=== PATIENT | female | born 1935 | race Caucasian/White ===

== ENCOUNTER → 2016-05-18 | Outpatient (CLI) | payer MEDICARE | END | disposition home or self-care (01) | LOC: PCVCCLINIC 13:08 | PROVIDERS: ATTEND Internal Medicine Cardiovascular Disease | DX: I05.9 Rheumatic mitral valve disease, unspecified (principal); I10 Essential (primary) hypertension; R06.00 Dyspnea, unspecified; E78.00 Pure hypercholesterolemia, unspecified | CPT/HCPCS: 93005; G0463 ==

== ENCOUNTER → 2016-06-01 | Outpatient (CLI) | payer MEDICARE ==
[~2016-06-01] MED LIST: REGADENOSON 0.4 MG/5 ML DISP.SYRIN. IV ONE
== END | disposition home or self-care (01) ==
LOC: PCVCIMAG 08:39
PROVIDERS: ATTEND Internal Medicine Cardiovascular Disease
DX: I35.0 Nonrheumatic aortic (valve) stenosis (principal); I05.9 Rheumatic mitral valve disease, unspecified; I10 Essential (primary) hypertension; R06.00 Dyspnea, unspecified; E78.00 Pure hypercholesterolemia, unspecified
CPT/HCPCS: 78452; 93017; 93306; A9500; G0463; J2785

== ENCOUNTER → 2016-09-29 | Outpatient (CLI) | payer MEDICARE ==
--- NOTE | 2016-09-29 14:30 | PCVCIMAG ---
EXAM: 1. MESENTERIC ARTERIAL DUPLEX 2. AORTOILIAC DUPLEX INDICATION: Mesenteric Atherosclerosis. Peripheral arterial disease. FINDINGS: CELIAC AXIS: No flow limiting stenosis. No branch vessel stenosis. SUPERIOR MESENTERIC ARTERY: No flow limiting stenosis. No branch vessel stenosis. INFERIOR MESENTERIC ARTERY: No flow limiting stenosis. No branch vessel stenosis. Mesenteric veins are patent where seen. AORTA: Suprarenal aorta measures maximum diameter of 2.1 cm. There is not a fusiform infrarenal aortic aneurysm. The infrarenal aorta measures maximum diameter of 1.7 cm. No aortic stenosis. RIGHT COMMON ILIAC ARTERY: Maximum diameter is 0.9 cm. No significant stenosis. RIGHT EXTERNAL ILIAC ARTERY: No significant stenosis. LEFT COMMON ILIAC ARTERY: Maximum diameter is 1.0 cm. No significant stenosis. LEFT EXTERNAL ILIAC ARTERY: No significant stenosis. IMPRESSION: No flow limiting mesenteric arterial stenosis. No abdominal aortic aneurysm. No aortoiliac stenosis seen. LOC:[id number]
== END | disposition home or self-care (01) ==
LOC: PCVCIMAG 10:14
PROVIDERS: ATTEND Nuclear Medicine Nuclear Cardiology
DX: K55.1 Chronic vascular disorders of intestine (principal); I73.9 Peripheral vascular disease, unspecified
CPT/HCPCS: 93975; 93978

== ENCOUNTER → 2018-02-23 | Outpatient (CLI) | payer MEDICARE ==
--- NOTE | 2018-02-23 13:36 | PCVCIMAG ---
EXAM: BILATERAL CAROTID DUPLEX INDICATION: Carotid Occlusive Disease. FINDINGS: Doppler Measurements (centimeters per second): RIGHT: Peak CCA-69, Peak ECA-130, Diastolic ICA-16, Peak ICA-82, ICA/CCA Ratio-1.2. LEFT: Peak CCA-95, Peak ECA-96, Diastolic ICA-22, Peak ICA-111, ICA/CCA Ratio-1.2. RIGHT CAROTID: The carotid bulb has moderate plaque. The proximal internal carotid artery shows <40% stenosis. The common carotid artery shows no significant stenosis. The external carotid artery shows 40% stenosis. LEFT CAROTID: The carotid bulb has moderate plaque. The proximal internal carotid artery shows <40% stenosis. The common carotid artery shows no significant stenosis. The external carotid artery shows no significant stenosis. Antegrade flow in both vertebral arteries. IMPRESSION: <40% stenosis of the right internal carotid artery with moderate plaque. <40% stenosis of the left internal carotid artery with moderate plaque. LOC:[place] [id number]
== END | disposition home or self-care (01) ==
LOC: PCVCIMAG 12:08
PROVIDERS: ATTEND Internal Medicine
DX: I65.23 Occlusion and stenosis of bilateral carotid arteries (principal); R09.89 Other specified symptoms and signs involving the circulatory and respiratory systems
CPT/HCPCS: 93880

== ENCOUNTER → 2018-10-24 | Outpatient (CLI) | payer MEDICARE | END | disposition home or self-care (01) | LOC: PCVCCLINIC 13:40 | PROVIDERS: ATTEND Internal Medicine Cardiovascular Disease | DX: R07.9 Chest pain, unspecified (principal); R55 Syncope and collapse; I10 Essential (primary) hypertension; E78.00 Pure hypercholesterolemia, unspecified | CPT/HCPCS: 93005; G0463 ==

== ENCOUNTER → 2018-11-21 | Outpatient (CLI) | payer MEDICARE ==
--- NOTE | 2018-11-21 10:19 | PCVCIMAG ---
APPROVED REPORT Study performed: 11/21/2018 08:54:58 EXAM: Comprehensive 2D, Doppler, and color-flow Echocardiogram Patient Location: Echo lab Room #: 3Status: routine BSA: 1.52 HR: 64 bpmBP: 140/92 mmHg Rhythm: NSR Other Information Study Quality: Good Risk Factors: Cardiac Risk Factors: HTN, Hyperlipidemia Indications Aortic Valve Disease Mitral Valve Disease Mitral Valve Prolapse Chest Pain Hypertension/HDD 2D Dimensions IVSd: 8.78 (7-11mm)LVOT Diam: 19.13 (18-24mm) LVDd: 35.45 mm PWd: 10.99 (7-11mm)Ascending Ao: 27.38 (22-36mm) LVDs: 25.48 (25-40mm) Left Atrium: 26.52 (27-40mm) Aortic Root: 19.87 mm LV Single Plane 4CH: 72.82 % LV Single Plane 2CH: 62.45 % Biplane EF: 68.0 % Volumes Left Atrial Volume (Systole) Single Plane 4CH: 43.36 mLSingle Plane 2CH: 45.90 mL Biplane LA Volume: 48.00 mLLA ESV Index: 31.00 mL/m2 Aortic Valve AoV Peak Pro.: 2.16 m/s AO Peak Gr.: 17.57 mmHgLVOT Max P.01 mmHg AO Mean Gr.: 10.80 mmHgLVOT Mean P.55 mmHg AO V2 Mean: 1.57 m/sLVOT Max V: 0.83 m/s AO V2 VTI: 51.12 cmLVOT Mean V: 0.60 m/s MAEVE (VTI): 0.97 [id number] V1 VTI: 17.30 cm MAEVE Vmax: 1.11 cm2 AI Vmax: 3.20 m/sSV (LVOT): 49.69 mL AI [place]: 1.87 m/s2 AI PHT: 497.03 ms Mitral Valve MV Peak Gr.: 10.65 mmHg MV Mean Gr.: 5.54 mmHgE/A Ratio: 1.8 MV Decel. Time: 225.89 ms MV E Max Pro.: 1.48 m/s MV A Pro.: 0.83 m/s MV Max Pro.: 1.63 m/s MV Mean Pro.: 1.15 m/s MV VTI: 290.72 mm MVA VTI: 170.93 mm2 MV PHT: 40.45 ms MVA (PHT): 5.44 cm2 TDI E/Lateral E': 29.60E/Medial E': 29.60 Medial E' Pro.: 0.05 m/s Lateral E' Pro.: 0.05 m/s Pulmonary Valve PV Peak Pro.: 0.87 m/sPV Peak Gr.: 3.02 mmHg Pulmonary Vein P Vein S: 0.49 m/sP Vein A: 0.33 m/s P Vein D: 0.49 m/sP Vein A Dur.: 79.6 msec P Vein S/D Ratio: 1.00 Tricuspid Valve TR Peak Pro.: 2.83 m/s TR Peak Gr.: 32.02 mmHg TV Vmax: 0.64 m/sPA Pressure: 39.00 mmHg Left Ventricle The left ventricle is normal size. There is normal LV segmental wall motion. Borderline concentric left ventricular hypertrophy. Left ventricular systolic function is normal. The left ventricular ejection fraction is within the normal range. LVEF is 65-70%. Moderate diastolic dysfunction is present (pseudonormal filling). Right Ventricle The right ventricle is normal size. The right ventricular systolic function is normal. Atria The left atrium size is normal. The right atrium size is normal. Aortic Valve Aortic valve is trileaflet. Aortic valve leaflets are sclerotic with decreased opening. Mild to moderate aortic regurgitation. Moderate aortic stenosis. Highest mean aortic valve gradient is 10.8_mmHg. Peak aortic valve gradient is 18.7_mmHg. Calculated MAEVE by the continuity equation is 1.1 cm2. Mitral Valve Severe mitral annular calcification. The mitral valve is calcified and displays decreased opening. Moderate to severe mitral regurgitation No significant mitral valve stenosis. Tricuspid Valve The tricuspid valve is normal in structure. Mild to moderate tricuspid regurgitation with a PA pressure of 39 mmHg. Borderline pulmonary hypertension. Pulmonic Valve The pulmonary valve is normal in structure. There is no pulmonic valvular regurgitation. Great Vessels The aortic root is normal in size. The ascending aorta is normal in size. Aortic arch is normal in caliber. IVC is normal in size and collapses >50% with inspiration. Pericardium There is no pericardial effusion. There is no pleural effusion. <Conclusion> The left ventricle is normal size. Left ventricular systolic function is normal. Moderate diastolic dysfunction is present (pseudonormal filling). The right ventricle is normal size. The left atrium size is normal. Mild to moderate aortic regurgitation. Moderate aortic stenosis. Severe mitral annular calcification. The mitral valve is calcified and displays decreased opening. Moderate to severe mitral regurgitation Mild to moderate tricuspid regurgitation with a PA pressure of 39 mmHg.
--- NOTE | 2018-11-21 13:34 | PCVCIMAG ---
APPROVED REPORT Imaging Protocol: Rest Tc-99m/Stress Tc-99m 1 day Study performed: 11/21/2018 09:50:57 Indication: Chest pain, Syncope Patient Location: Out-Patient Stress Nurse: Sandra Treviño RN NM Tech:Markell Wilkins NMTCB Ht: 5 ft 3 in Wt: 117 lbs BSA: 1.54 m2 HR: 67 bpm BP: 181/79 mmHg BMI: 20.72 Rhythm: Normal Sinus Rhythm - Septal Infarct Medical History Medical History: Age, Hyperlipidemia, HTN, Medications: Carvedilol, Ativan, Pravachol Allergies: No known drug allergies Exercise History: Sedentary Physical Disabilities: Back Meds Held (24 hrs): Carvedilol Resting Data Rest SPECT myocardial perfusion imaging was performed in supine position 45 minutes following the intravenous injection of 11.8 mCi of Tc-99m Sestamibi. Time of rest injection: 1000 Date: 11/21/2018 Administration Route: IV Administration Site: Right AC Pharmacologic Stress Pharmacologic stress test was performed by injecting Regadenoson 0.4 mg IV push over 10-15 seconds immediately followed by the intravenous injection of 30.5 mCi of Tc-99m Sestamibi. Time of stress injection: 1130 Date: 11/21/2018 Administration Route: IV Administration Site: Right AC Gated Stress SPECT was performed 45 minutes after stress injection. The images were gated to evaluate regional wall motion and calculate left ventricular ejection fraction. Stress Test Details Stress Test: Pharmacologic stress testing performed using 0.4 mg of regadenoson per 5 mL given IV over 10 seconds. HRMax Heart Rate (APMHR): 135 bpm Resting HR: 67 bpmTarget HR (85% APMHR): 114 bpm Max HR Achieved: 92 bpm % of APMHR: 68 Recovery HR: 71 bpm BP Resting BP: 181/79 mmHg Max BP: 210/90 mmHg Recovery BP: 197/84 mmHg ECG Resting ECG: Sinus Rhythm Stress ECG: Sinus Rhythm ST Change: Non-ischemic Recovery ECG: Sinus Rhythm Clinical Reason for Termination: Completed protocol Study Quality Study: Good Study Data Post stress, the left ventricular ejection was 91%.. SSS: 0 SRS: 2 SDS: 0 TID = 0.65. Perfusion Normal left ventricular perfusion. Normal perfusion on both the stress and rest images. Wall Motion Normal left ventricular wall motion. Nuclear Conclusion ECG Findings: negative for ischemia Clinical Findings: non-diagnostic Nuclear Findings: negative for ischemia Exercise Capacity: not assessed Left Ventricular Function: normal Risk Study: low This study is of low probability for inducible ischemia or prior infarct. Normal global and segmental LV systolic function.
== END | disposition home or self-care (01) ==
LOC: PCVCIMAG 08:54
PROVIDERS: ATTEND Internal Medicine Cardiovascular Disease
DX: I08.3 Combined rheumatic disorders of mitral, aortic and tricuspid valves (principal); I10 Essential (primary) hypertension; E78.00 Pure hypercholesterolemia, unspecified
CPT/HCPCS: 78452; 93017; 93306; A9500; G0463; J2785